=== PATIENT | female | born 1965 | race African-American/Black ===

== ENCOUNTER → 2017-03-28 | Outpatient (CLI) | payer MEDICAID | LOC: OD 16:00 | PROVIDERS: ATTEND Family Medicine | DX: M54.9 Dorsalgia, unspecified (principal) | CPT/HCPCS: 72100 ==

== ENCOUNTER → 2017-07-10 | Outpatient (CLI) | payer MEDICAID ==
--- NOTE | 2017-07-10 14:53 | RADIOLOGY REPORT (SQ) ---
EXAM DESCRIPTION: CHEST PA/LATERAL COMPLETED DATE/TIME: 07/10/2017 2:13 pm REASON FOR STUDY: COUGH COMPARISON: 10/07/2014 EXAM PARAMETERS: NUMBER OF VIEWS: two views TECHNIQUE: Digital Frontal and Lateral radiographic views of the chest acquired. RADIATION DOSE: NA LIMITATIONS: none FINDINGS: LUNGS AND PLEURA: No opacities, masses or pneumothorax. No pleural effusion. MEDIASTINUM AND HILAR STRUCTURES: No masses or contour abnormalities. HEART AND VASCULAR STRUCTURES: Heart normal size. No evidence for failure. BONES: No acute findings. HARDWARE: None in the chest. OTHER: No other significant finding. IMPRESSION: NO SIGNIFICANT RADIOGRAPHIC FINDING IN THE CHEST. TECHNICAL DOCUMENTATION: JOB ID: [id number] [employer]- All Rights Reserved
== END ==
LOC: OD 13:15
PROVIDERS: ATTEND Family Medicine
DX: R05 Cough (principal)
CPT/HCPCS: 71020

== ENCOUNTER 2020-01-15 12:35 | Emergency (ER) | payer MEDICAID ==
[2020-01-15] MEDS ORDERED: EPINEPHRINE INJ 1 MG/10 ML DISP.SYRIN ONE (16:46)
--- NOTE | 2020-01-17 08:08 | ER Document Report ---
Entered by RICHARD SCRUGGS SCRIBE 01/15/20 1248 Acting as scribe for:NELI SHELDON MD ED General - General Stated Complaint: POSSIBLE CARDIAC ARREST Time Seen by Provider: 01/15/20 12:48 Primary Care Provider: RICHARD MARINELLI PA [NO LOCAL MD] - Follow up as needed Mode of Arrival: Medic Information source: Emergency Med Personnel Notes: 54-year-old female presents to the emergency department via EMS in cardiac arrest. Patient was standing outside on her front porch when she reportedly collapsed, fell backwards and hit her head. Relative witness reports that when patient fell back, she shook a little bit with incontinence before she stopped breathing. CPR was performed for about 5 minutes prior to EMS arrival. EMS reports that patient was initially in asystole.CPR was started. An IO was placed in the right tibia. [place] was obtained and lost at least 4 times. The patient received 12 doses of epinephrine, 2 doses of atropine, 1 dose of sodium bicarb and had started a Levophed drip. During the resuscitation the patient would go from bradycardic to tachycardic and PEA and pulses. On arrival EMS was performing CPR again after the patient had lost pulses for at least the fifth time. The patient had been intubated with a 7.5 endotracheal tube and was given ketamine during that time. When EMS arrived the emergency room, the code had been going on for approximately 50 minutes. TRAVEL OUTSIDE OF THE [place] IN LAST 30 DAYS: No - Related Data Allergies/Adverse Reactions: No Known Allergies Allergy (Verified 10/07/14 16:49) Past Medical History - General Information source: Emergency Med Personnel, [facility] Records Cannot obtain history due to: Intubated - Social History Smoking Status: Unknown if Ever Smoked Cigarette use (# per day): No Chew tobacco use (# tins/day): No Smoking Education Provided: No Frequency of alcohol use: None Drug Abuse: None Occupation: Unemployed Lives with: Family Family History: CAD, DM, Hyperlipidemia, Hypertension, Malignancy - Past Medical History Cardiac Medical History: Reports: Hx Hypertension Endocrine Medical History: Reports: Hx Hypothyroidism Psychiatric Medical History: Reports: Hx Depression Past Surgical History: Reports: Hx Section - x3 - Immunizations Immunizations up to date: No Hx Diphtheria, Pertussis, Tetanus Vaccination: No Review of Systems - Review of Systems -: Yes ROS unobtainable due to patient's medical condition Physical Exam - General General appearance: Other - Intubated, CPR in progress - HEENT Head: Normocephalic Pupils: Dilated, Fixed Neck: Other - Hard collar has been applied to the cervical spine. - Respiratory Notes: Patient is intubated, there are good breath sounds heard on the right and left side with bag valve ventilation. - Cardiovascular Rhythm: Other - Asystole - Abdominal Inspection: Obese - Back Back: Other - Patient is on the stretcher with CPR underway, the back was not evaluated - Extremities General upper extremity: Normal inspection General lower extremity: Other - IO in the right tibia - Neurological Neuro grossly intact: No - Patient is intubated, CPR in progress, unresponsive - Psychological Associated symptoms: Other - Patient is unresponsive with CPR in progress - Skin Notes: Abdomen palpation feels warm, extremities feel cool. Course - Re-evaluation Re-evalutation: 01/15/20 13:09 When the patient arrived in emergency room, EMS was performing CPR. The patient was on a Levophed drip. Chest compressions were stopped, the monitor showed asystole. She was given epinephrine IV, CPR was resumed. On the next pulse check she seemed to be in a narrow complex PEA rhythm. CPR continued for approximately 10 minutes, pulses could not be detected with the pulse Doppler machine that we have for checking pulses and heart tones. There was suspicion that the carotid pulse could be felt intermittently, but she did have a hard cervical collar on. Patient's pupils were fixed and dilated. After repeated pulse checks would show PEA, or asystole, and consultation with the loading machine operator, the code was called. Several minutes later the monitor did show narrow complex tachycardia and bagging was restarted. Pulses were suspected by the respiratory therapist, but we could not confirm them. The monitor would go from asystole for several seconds to agonal type complexes, to narrow complexes, but pulses were never d etected. Decision was made to disconnect the monitor and stop any further intervention. 01/15/20 14:01 Family reported that the patient had not been taking her medication for quite some time. She was going to see a new doctor tomorrow to restart her primary care. Discharge - Discharge Clinical Impression: Cardiopulmonary arrest Disposition: Referrals: RICHARD MARINELLI PA [NO LOCAL MD] - Follow up as needed I personally performed the services described in the documentation, reviewed and edited the documentation which was dictated to the scribe in my presence, and it accurately records my words and actions.
== END 2020-01-15 17:00 | disposition expired ==
LOC: ER 12:35
DX: I46.9 Cardiac arrest, cause unspecified (principal); E66.9 Obesity, unspecified; I10 Essential (primary) hypertension; E03.9 Hypothyroidism, unspecified
CPT/HCPCS: 99285; 92950; J0171